=== PATIENT | female | born 1980 | race Caucasian/White ===

== ENCOUNTER → 2016-11-20 | Day surgery (SDC) | payer BC ==
--- NOTE | 2016-11-20 14:55 | OP ---
DATE OF OPERATION: 11/20/2016 PREOPERATIVE DIAGNOSIS: Left breast mass 2 o'clock, 1 cm from the nipple. POSTOPERATIVE DIAGNOSIS: Left breast mass 2 o'clock, 1 cm from the nipple. PROCEDURE: Left breast ultrasound-guided core biopsy with clip placement. ANESTHESIA: Local. ATTENDING SURGEON: Giovanni Farr MD ESTIMATED BLOOD LOSS: Minimal. COMPLICATIONS: None. DESCRIPTION OF PROCEDURE: Patient was made aware of the risks and benefits including implant rupture and consented. She was placed in the supine position and under sterile conditions with 1% lidocaine for local anesthesia, small eric was made in the skin. Using a 13-gauge suction biopsy device via inferolateral approach, 6 cores were obtained under ultrasound guidance and submitted to pathology. Likewise, under ultrasound guidance a clip was placed into the biopsy region. During the entire procedure, the needles were all identified with intraoperative ultrasound, and none came close to the implant. Patient tolerated the procedure well. Steri-Strips and sterile bandages were applied. Will contact her with the results. GIOVANNI FARR M.D. [id number]
--- NOTE | 2016-11-23 12:56 | PATH ---
Surgical Pathology Report Patient Name: JED FLYNN [facility]. Rec. #: [id number] /Age/Gender: 1980 (Age: 36) / F Account: [id number] Location: [facility] RAD[facility]OLOG[facility] U Taken: 11/20/2016 Received: 11/20/2016 Reported: 11/23/2016 Physicians: Blanca Wilde M.D. 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 REMAINING BREAST TISSUE SHOWS STROMAL FIBROSIS. Electronically Signed Nichol Fry M.D. Gross Description Received in formalin labeled "left breast 2:00, 1cmfn," are 6 reed-yellow, cylindrical portions of fibroadipose tissue ranging from 1.0-1.7 cm in length and averaging 0.2 cm in diameter. The specimens are submitted in toto in one cassette. Time to formalin fixation: Less than one minute Total formalin fixation time: Approximately 8 hours. 11/20/201611/20/2016
== END | disposition home or self-care (01) ==
LOC: EDSTATUS 12:30 → FRAD 12:48 → FRADUS-SUR 12:51
PROVIDERS: ATTEND Surgery Surgical Oncology
PROC: 0HBU3ZX Excision of Left Breast, Percutaneous Approach, Diagnostic (ICD-10-PCS; principal; 2016-11-20)
DX: N63 Unspecified lump in breast (principal); D24.2 Benign neoplasm of left breast; N60.32 Fibrosclerosis of left breast
CPT/HCPCS: 19083; 76641-TC-LT; 88305-TC